=== PATIENT | male | born 2000 | race Caucasian/White ===

== ENCOUNTER 2023-02-27 11:45 | Day surgery (SDC) | payer OTHER, SELFPAY ==
[2023-02-27] VITALS (11 sets, daily range): BP systolic 122–135; BP diastolic 59–87; PULSE 59–90; RESP 14–16; TEMP 36.4–37.3; O2SAT 96–100; BMI 22.4
[2023-02-27] MEDS: SODIUM CHLORIDE 0.9 % (FLUSH) 10 ML SYRINGE IVF (12:10)
[2023-02-27] MEDS: LACTATED RINGERS 1000 ML 1,000 ML 35 ML IV (12:10)
[2023-02-27] MEDS: OXYMETAZOLINE 0.05% NASAL SPRAY 2 SPRAY NOSTRIL-B (12:10)
[2023-02-27] MEDS: COCAINE HCL 4 % 4 ML SOLUTION NOSTRIL-B (13:48)
[2023-02-27] MEDS: BUPIVACAINE 0.5%/EPINEPHRINE 0.9 MG (30.9 ML) INJECTION (13:49)
[2023-02-27] MEDS: AYR SALINE NASAL GEL 1 APPLIC NOSTRIL-B (13:55)
--- NOTE | 2023-02-27 13:59 | SUR.OPER ---
PATIENT QUESTIONS ANSWERED SATISFACTORILY PREOPERATIVELY. PATIENT BROUGHT TO OR #2 PER CART. Patient positioned supine on OR #2 bed. Perioperative team wrapped arms bilaterally at patient side with drawsheet. ? Final approval of positioning by surgeon.
--- NOTE | 2023-02-27 14:01 | W.ANESCHARGE ---
Anesthesia Charges Start Date/Time Anesthesia Start Date: 02/27/23 Anesthesia Start Time: 13:34 Stop Date/Time Anesthesia Stop Date: 02/27/23 Anesthesia Stop Time: 14:40
--- NOTE | 2023-02-27 14:17 | W.ANESCHARGE ---
Anesthesia Charges Start Date/Time Anesthesia Start Date: 02/27/23 Anesthesia Start Time: 13:34 Stop Date/Time Anesthesia Stop Date: 02/27/23 Anesthesia Stop Time: 14:40
--- NOTE | 2023-02-27 14:26 | W.PM.ENTPROC ---
Procedure Note Date of procedure: 02/27/23 Procedure: Preoperative diagnosis deviated septum nasal obstruction inferior turbinate hypertrophy bilateral chronic and recurrent maxillary sinusitis Postoperative diagnosis same Procedure nasal septoplasty, submucous partial resection right inferior turbinate, endoscopic bilateral maxillary antrostomies with tissue removal Under general endotracheal anesthesia patient was prepped and draped usual fashion nose injected and decongested. A right hemitransfixion incision was made bilateral anterior and posterior tunnels were created. A vertical incision was made in the cartilage cartilage from bone. The posterior deflected portions of septal bone resected in 2 large pieces trimmed returned to intraseptal space. There was a right premaxillary wing deformity there was mainly bony. A portion of this was removed with a chisel and that was infractured alleviating the obstruction. The hemitransfixion was closed with 2 4-0 chromic sutures and left inferior 2 cm drainage incision was made in the septal mucosa. A stab incision was made in the anterior of the right inferior turbinate a tunnel created with a Javier dissector. The chino bone was outfractured a conservative anterior submucous resection was performed. The Coblation was used to cauterize intramurally along the inferior 10% as well. Image guidance and 0 degree endoscopy were used for the remainder procedure. The left uncinate process was identified in the inferior 4th taken down. This exposed natural ostium to maxillary sinus which was occluded by polypoid tissue. This was removed in an 8 mm antrostomy created. This was repeated on the right side. The uncinate was adherent to the medial orbital wall but was taken down safely at the inferior quarter. The natural os was identified and enlarged to 9 mm diameter. A large amount of mucoid fluid was aspirated from the right maxillary sinus. Silastic stents were secured on either side the septum with 3-0 nylon. Merocel pack coated in Bactroban was placed on each side. The patient procedure well was taken recovery in satisfactory condition. Blood loss during procedure was less than 25 mL. Surgeon: Barrett Jean MD
[2023-02-27] MEDS: MUPIROCIN 1 GM PACKET 1 APPLIC TOPICAL (14:28)
[2023-02-27] MEDS: OXYCODONE 5 MG TABLET PO (16:23)
[2023-02-27] MEDS: ACETAMINOPHEN 325 MG TABLET PO (16:57)
[2023-02-27] MEDS: IBUPROFEN 200 MG TABLET PO (16:57)
== END 2023-02-27 17:38 | disposition home or self-care (01) ==
LOC: OR 11:45
PROVIDERS: PCP Family Medicine; Visit Provider Otolaryngology
PROC: (CPT 31231; principal; 2023-02-27 12:45)
DX: J34.2 Deviated nasal septum (principal); J34.3 Hypertrophy of nasal turbinates; J32.0 Chronic maxillary sinusitis; J34.89 Other specified disorders of nose and nasal sinuses
CPT/HCPCS: 30520; 30140; 31267; 00160; 88305; A9270; J0330; J1100; J2250; J2405; J2704; J3010; J7120